=== PATIENT | male | born 1945 | race Caucasian/White ===

== ENCOUNTER 2022-03-10 12:10 | Emergency (ER) | payer OTHER, MEDICARE ==
[2022-03-10 12:19] VITALS: BP 143/79; PULSE 73; RESP 18; TEMP 98.2; BMI 26.3
[2022-03-10] MEDS ORDERED: SODIUM CHLORIDE 0.9% 500 ML INFUS.BAG IV ONE (12:36)
[2022-03-10] MEDS ORDERED: ACETAMINOPHEN 1000 MG/100 ML BAG IVPB ONE (12:36)
[2022-03-10] MEDS ORDERED: ACETAMINOPHEN INJECTION 100 ML IVPB ONE (12:47)
[2022-03-10 13:12] LABS: ALBUMIN 4.6 g/dl (3.4-5.0); BILIRUBIN,TOTAL 1.2 mg/dl (0.2-1); CALCIUM 9.8 mg/dl (8.5-10); CREATININE 0.9 mg/dl (0.55-1.3); TOT PROT 7.1 g/dl (6.4-8.2)
[2022-03-10 13:13] LABS: HEMATOCRIT 45.4 % (35.4-49); HEMOGLOBIN 15.8 G/dL (11.7-16.9); MCH 30.8 pg (25.7-33.7); MCHC 34.7 g/dl (32.0-35.9); MEAN CELL VOLUME 88.6 fl (80-96); MEAN PLT VOLUME 7.8 fl (7.5-11.1); PLATELET COUNT 188.2 10^3/uL (134-434); RBC 5.12 10^6/uL (4.00-5.60); RDW 13.7 % (11.9-15.9); WHITE BLOOD COUNT 7.2 10^3/uL (4.0-10.8)
[2022-03-10 13:16] LABS: PLATELET ESTIMATE ADEQUATE
== END 2022-03-10 14:40 | disposition home or self-care (01) ==
LOC: FER 12:10
PROC: 3E033GC Introduction of Other Therapeutic Substance into Peripheral Vein, Percutaneous Approach (ICD-10-PCS; principal; 2022-03-10)
DX: K57.90 Diverticulosis of intestine, part unspecified, without perforation or abscess without bleeding (principal)
CPT/HCPCS: 36415; 74177-TC; 80053; 81003; 83605; 85027; 87086; 99285-25; Q9967

== ENCOUNTER 2023-01-19 08:14 | Day surgery (SDC) | payer OTHER, MEDICARE ==
[2023-01-17 16:10] VITALS: BMI 27.4
[2023-01-19 09:34] VITALS: TEMP 97
[2023-01-19 09:58] VITALS: RESP 16
[2023-01-19 09:59] VITALS: BP 119/76; PULSE 64
== END 2023-01-19 10:07 | disposition home or self-care (01) ==
LOC: FASU-ENDO 08:14
PROVIDERS: ATTEND Internal Medicine Gastroenterology
PROC: 0DBP8ZX Excision of Rectum, Via Natural or Artificial Opening Endoscopic, Diagnostic (ICD-10-PCS; principal; 2023-01-19 09:16)
DX: Z12.11 Encounter for screening for malignant neoplasm of colon (principal); K62.1 Rectal polyp; K57.30 Diverticulosis of large intestine without perforation or abscess without bleeding; Z86.010 Personal history of colon polyps